=== PATIENT | female | born 1965 | race Caucasian/White ===

== ENCOUNTER → 2017-07-24 | Outpatient (CLI) | payer OTHER ==
[~2017-07-24] MED LIST: PEPCID AC 10MG10 MG PO; elderberry; juice plus PO
== END ==
LOC: MC.RAD 07:40
DX: Z12.31 Encounter for screening mammogram for malignant neoplasm of breast (principal)

== ENCOUNTER → 2018-08-30 | Outpatient (CLI) | payer BC | LOC: MC.RAD 14:54 | DX: Z12.31 Encounter for screening mammogram for malignant neoplasm of breast (principal) ==

== ENCOUNTER → 2019-09-16 | Outpatient (CLI) | payer BC | LOC: MC.RAD 16:30 | DX: Z12.31 Encounter for screening mammogram for malignant neoplasm of breast (principal) ==

== ENCOUNTER → 2020-08-17 | Outpatient (CLI) | payer BC | LOC: COL.RAD 14:22 | DX: M89.9 Disorder of bone, unspecified (principal); S42.202A Unspecified fracture of upper end of left humerus, initial encounter for closed fracture; Z98.890 Other specified postprocedural states ==

== ENCOUNTER → 2020-08-18 | Outpatient (CLI) | payer BC | LOC: COL.RAD 09:24 | DX: M89.9 Disorder of bone, unspecified (principal) | CPT/HCPCS: A9503 ==

== ENCOUNTER → 2020-08-30 | Outpatient (CLI) | payer BC | LOC: COL.RAD 10:11 | DX: C90.00 Multiple myeloma not having achieved remission (principal) ==

== ENCOUNTER 2020-09-13 16:23 | Inpatient (IN) | payer BC ==
[2020-09-13] VITALS (7 sets, daily range): BP systolic 95–111; BP diastolic 49–84; PULSE 80–94; TEMP 97.9–98.4
[~2020-09-13] VITALS: Ht 167.6 cm; Wt 65.9 kg
[2020-09-13 17:25] LABS: ALANINE AMINOTRANSFERASE 67 U/L (4-34); ALBUMIN 3.5 gm/dL (3.5-5.0); ALKALINE PHOSPHATASE 214 U/L (50-136); ANION GAP 5 mmol/L (7-16); AST,SGOT 50 U/L (15-37); BILIRUBIN,TOTAL 0.6 mg/dL (0.0-1.0); BLOOD UREA NITROGEN 11 mg/dL (7-17); CALCIUM 9.1 mg/dL (8.4-10.2); CARBON DIOXIDE 31 mmol/L (22-30); CHLORIDE 99 mmol/L (98-107); CREATININE, serum 0.79 (0.52-1.25); GLUCOSE 131 mg/dL (74-106); LIPASE 31 U/L (23-300); POTASSIUM 3.6 mmol/L (3.4-5.0); SODIUM 135 mmol/L (137-145); TOTAL PROTEIN 5.8 gm/dL (6.4-8.2)
[2020-09-13 17:34] LABS: MEAN CELL VOLUME 103 fl (80.0-100.0); MEAN CORPUSCULAR HGB CONC 32 g/dl (33.0-37.0); MEAN PLATELET VOLUME 8.8 fl (7.4-10.4); PLATELET COUNT 361 K/mm3 (130-400); RED BLOOD COUNT 2.04 M/mm3 (4.10-5.30); REDCELL DISTRIBUTION WIDTH-CV 12.8 % (11.5-14.5)
[2020-09-13 17:45] LABS: TROPONIN-I < 0.012 ng/mL (0.000-0.035)
[2020-09-13 17:47] LABS: HEMOGLOBIN 6.8 g/dl (12.5-16.0); MEAN CORPUSCULAR HEMOGLOBIN 33 pg (27.0-31.0)
[2020-09-13 18:06] LABS: COLLECTION METHOD CLEAN CATCH
[2020-09-13 18:39] LABS: PH 8 (5-8); SQUAMOUS EPITHELIAL None Seen /hpf; URINE APPEARANCE Clear; URINE BACTERIA None Seen /hpf; URINE BILIRUBIN Negative (NEGATIVE); URINE BLOOD Negative (NEGATIVE); URINE COLOR Straw; URINE GLUCOSE Negative (NEGATIVE); URINE KETONE Negative (NEGATIVE); URINE LEUKOCYTE ESTERASE Negative (NEGATIVE); URINE NITRATE Negative (NEGATIVE); URINE PROTEIN(semi-quant) Negative (NEGATIVE); URINE RBC None Seen /hpf; URINE UROBILINOGEN Negative (NEGATIVE)
[2020-09-13 19:23] LABS: BAND 6 % (0-10); EOSINOPHIL 1 % (0-4); LYMPHOCYTE 26 % (20.0-51.0); METAMYELOCYTE 1 % (0-0); NEUTROPHILS 53 % (42.0-75.2)
[2020-09-13 19:25] LABS: PLATELET ESTIMATE NORMAL (NORMAL)
[2020-09-13 19:26] LABS: OVALOCYTES 1+; POLYCHROMASIA 1+; TEAR DROP CELLS 1+
[2020-09-13 20:18] LABS: INR 1.3 (0.8-3.0)
[2020-09-13 20:21] LABS: PARTIAL THROMBOPLASTIN TIME 34.2 SECONDS (26.0-37.0)
[2020-09-14 02:31] VITALS: BP 108/58; PULSE 72; TEMP 97.8
[2020-09-14] MEDS ORDERED: ZYRTEC 10MG10 MG PO (02:44)
[2020-09-14] MEDS ORDERED: ONE-A-DAY ESSE1 EACH PO (02:45)
[2020-09-14] MEDS ORDERED: PROBIOTIC FORMU1 CAP PO (02:45)
[2020-09-14] MEDS ORDERED: SEN-O-TABS8.6 MG PO (02:46)
--- NOTE | 2020-09-14 02:56 | NUR ---
Arrived to medical floor. Assessment complete. Lungs clear. Heart sounds normal. Pulses present throughout. No edema noted. Bowels active x4. IV right forearm infusing without complications. Incision to left shoulder and left knee covered with dressing and CDI. Reported 6/10 left shoulder pain and headache. Given PRN ultram at this time. Orientated to medical floor. Used bedside commode x1 assist. Denies any questions at this time. Denies needs. Call light in reach. SCDs in place. Food menu reviewed with patient.
[2020-09-14 03:36] LABS: HEMATOCRIT 27.2 % (37.0-47.0)
--- NOTE | 2020-09-14 05:19 | NUR ---
Patient required x1 dose of ultram for pain control during night. Otherwise uneventful night. Resting in bed this AM. Call light in reach.
--- NOTE | 2020-09-14 07:39 | NUR ---
Report given to BOBBY Cherry
[2020-09-14 07:51] VITALS: BP 116/65; PULSE 81; TEMP 97.9
[2020-09-14 08:17] LABS: MEAN CELL VOLUME 104 fl (80.0-100.0); MEAN CORPUSCULAR HGB CONC 32 g/dl (33.0-37.0); MEAN PLATELET VOLUME 8.4 fl (7.4-10.4); PLATELET COUNT 310 K/mm3 (130-400); REDCELL DISTRIBUTION WIDTH-CV 14.3 % (11.5-14.5)
[2020-09-14 08:19] LABS: HEMOGLOBIN 9.3 g/dl (12.5-16.0); MEAN CORPUSCULAR HEMOGLOBIN 33 pg (27.0-31.0)
[2020-09-14 08:57] LABS: PATHOLOGY DIFF REVIEW OK
--- NOTE | 2020-09-14 09:47 | NUR ---
Initial visit; Patient thanked [employer] for looking in on her and offering spiritual care.
[2020-09-14 11:25] VITALS: BP 120/61; PULSE 80; TEMP 98.4
--- NOTE | 2020-09-14 14:47 | NUR ---
Pt assessment completed and charted. Pt A&O, independent in room, on room air, breathing is even and unlabored, LS cta, HRRR. Pt denies chest pain, dizziness. Pt stated she had some nausea, zofran administered per oct. Pt c/o of headache and pain to Lt arm, pt receiving tylenol and ultram per oct. Pt has RFA INT IV that flushes well, IVF dc'd. No edema noted. Pt denies other needs at this time, call light within reach. Pt took shower this morning independently and had personal walker delivered.
--- NOTE | 2020-09-14 15:27 | NUR ---
Spray Gunner met with patient to discuss discharge planning. 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 Patient one week post left humerus/left femur prophylactic stabilization. Patient sees Dr. Mc for primary care and obtains medications from [facility] with no difficulties. Patient also follows with Dr. Jean Baptiste, Oncologist. Patient normally does not use DME but has a platform walker, shower chair, and toilet riser for surgery recovery. Patient is independent with ADLS and plans to return home upon discharge. Patient reports she had [employer]PO[employer]-HC which designates her friend, Reina Guerra. Patient states her daughter, Rachel ([phone]) will provide transportation home upon discharge. PT/OT were ordered for patient and recommendation is for home. RAMON contacted BOBBY Watkins-CM at [facility] who will fax DPOA-HC documents to RAMON.
[2020-09-14 16:58] VITALS: BP 125/66; PULSE 77; TEMP 98.4
[2020-09-14 17:48] LABS: HEMATOCRIT 28.9 % (37.0-47.0); HEMOGLOBIN 9.4 g/dl (12.5-16.0)
--- NOTE | 2020-09-14 19:38 | NUR ---
Resting in bed. Assessment complete. Lungs clear. Heart sounds normal. Bowels active x4. Pulses present throughout. No edema noted. INT right forearm without complications. Incisions to left shoulder and left knee CDI. Reports pain in left shoulder 6/10. Given PRN tramadol. Denies other needs at this time. Call light in reach.
[2020-09-14 21:02] VITALS: BP 138/70; PULSE 77; TEMP 98.7
[2020-09-14 22:44] LABS: FOLATE (FOLIC ACID) 16.5 ng/mL (7.0-31.4)
[2020-09-15 01:00] VITALS: BP 142/72; PULSE 88; TEMP 97.9
--- NOTE | 2020-09-15 04:09 | NUR ---
Resting in bed. Denies needs. Call light in reach.
[2020-09-15 05:31] VITALS: BP 127/78; PULSE 92; TEMP 97.9
--- NOTE | 2020-09-15 06:14 | NUR ---
Patient required x1 dose of ultram and x1 dose of tylenol for pain control during night. Otherwise uneventful night. Resting in bed this AM. call light in reach.
--- NOTE | 2020-09-15 07:07 | NUR ---
Report given to BOBBY Cherry
[2020-09-15 07:29] LABS: MEAN CELL VOLUME 102 fl (80.0-100.0); MEAN CORPUSCULAR HGB CONC 33 g/dl (33.0-37.0); MEAN PLATELET VOLUME 8.7 fl (7.4-10.4); PLATELET COUNT 341 K/mm3 (130-400); RED BLOOD COUNT 2.91 M/mm3 (4.10-5.30); REDCELL DISTRIBUTION WIDTH-CV 14.4 % (11.5-14.5)
[2020-09-15 07:39] LABS: CALCIUM 9.3 mg/dL (8.4-10.2); CREATININE, serum 0.68 (0.52-1.25); POTASSIUM 3.5 mmol/L (3.4-5.0)
[2020-09-15 07:46] LABS: HEMATOCRIT 29.6 % (37.0-47.0); HEMOGLOBIN 9.8 g/dl (12.5-16.0); MEAN CORPUSCULAR HEMOGLOBIN 34 pg (27.0-31.0)
[2020-09-15 08:20] VITALS: BP 115/70; PULSE 80; TEMP 98.6
--- NOTE | 2020-09-15 09:26 | NUR ---
Pt assessment completed and charted, medications administered per mar, pt A&O, independent in room, on room air, breathing is even and unlabored, denies SOB, denies chest pain. Pt states she justs "feels off". Has difficulty describing her symptoms, states she feels kind of "woozy, dizzy". Per pt she is trying not to take ultram and only take tylenol. Denies need for any med at this time. Pt has RFA INT IV that flushes well. Lt arm and lt leg covered w/ dressing from s/p surgery 1 week ago. LS cta, HRRR, pulses strong bilaterally. Pt states Lt arm bothers her "a little bit" but her Lt leg is fine. No further needs at this time. Call light within reach.
[2020-09-15 09:31] LABS: BAND 8 % (0-10); LYMPHOCYTE 17 % (20.0-51.0); METAMYELOCYTE 1 % (0-0); NEUTROPHILS 67 % (42.0-75.2); PLATELET ESTIMATE NORMAL (NORMAL)
[2020-09-15 09:32] LABS: ANISOCYTOSIS 1+
[2020-09-15] MEDS ORDERED: XARELTO10 MG PO (09:32)
[2020-09-15] MEDS ORDERED: ULTRAM 50MG TAB50 MG PO (09:33)
[2020-09-15] MEDS ORDERED: ZOFRAN ODT4 MG PO (09:34)
--- NOTE | 2020-09-15 11:10 | NUR ---
INT RFA dc'd w/ cath tip intact, no issues. Pt showering prior to discharge. Discharge instructions discussed and reviewed w/ pt who verbalized understanding, all questions answered, no further needs at this time. Awaiting pt ride to arrive.
--- NOTE | 2020-09-15 11:41 | NUR ---
Fish Culturist attended clinical rounds with the team and patient to discharge home today. No needs identified at this time.
--- NOTE | 2020-09-15 11:52 | NUR ---
Pt escorted out via WC w/ all of belongings. Pt daughter arrived to take pt home in private car.
== END 2020-09-15 11:52 | disposition home or self-care (01) | DRG 812 ==
LOC: COL.ER 16:23 → MEDICAL 20:18
PROVIDERS: Emergency Medicine; Student in an Organized Health Care Education/Training Program; ADMIT Student in an Organized Health Care Education/Training Program
DX: D64.9 Anemia, unspecified (principal); C90.00 Multiple myeloma not having achieved remission; K21.9 Gastro-esophageal reflux disease without esophagitis; Z20.828 Contact with and (suspected) exposure to other viral communicable diseases; D63.8 Anemia in other chronic diseases classified elsewhere
CPT/HCPCS: 99223-AI; 99232-AI; 99239; J2405; J7030; J7120; P9016

== ENCOUNTER 2020-10-08 14:58 | Emergency (ER) | payer BC ==
[~2020-10-08] VITALS: Ht 167.6 cm; Wt 65.9 kg
[~2020-10-08 14:58] MED LIST changes: +ONE-A-DAY ESSE1 EACH PO; +PROBIOTIC FORMU1 CAP PO; +SEN-O-TABS8.6 MG PO; +ULTRAM 50MG TAB50 MG PO; +XARELTO10 MG PO; +ZOFRAN ODT4 MG PO; +ZYRTEC 10MG10 MG PO
[2020-10-08] MEDS ORDERED: PRILOSEC10 MG PO (15:33)
[2020-10-08 16:06] LABS: HEMOGLOBIN 11.3 g/dl (12.5-16.0); MEAN CELL VOLUME 101 fl (80.0-100.0); MEAN CORPUSCULAR HEMOGLOBIN 34 pg (27.0-31.0); MEAN CORPUSCULAR HGB CONC 33 g/dl (33.0-37.0); MEAN PLATELET VOLUME 10.9 fl (7.4-10.4); PLATELET COUNT 98 K/mm3 (130-400); RED BLOOD COUNT 3.36 M/mm3 (4.10-5.30); REDCELL DISTRIBUTION WIDTH-CV 13.5 % (11.5-14.5)
[2020-10-08 16:08] LABS: HEMATOCRIT 33.9 % (37.0-47.0)
[2020-10-08 16:18] LABS: ALANINE AMINOTRANSFERASE 91 U/L (4-34); ALBUMIN 3.7 gm/dL (3.5-5.0); ALKALINE PHOSPHATASE 172 U/L (50-136); ANION GAP 7 mmol/L (7-16); AST,SGOT 116 U/L (15-37); BILIRUBIN,TOTAL 0.3 mg/dL (0.0-1.0); BLOOD UREA NITROGEN 18 mg/dL (7-17); CALCIUM 9.3 mg/dL (8.4-10.2); CARBON DIOXIDE 28 mmol/L (22-30); CHLORIDE 99 mmol/L (98-107); CREATININE, serum 0.74 (0.52-1.25); GLUCOSE 145 mg/dL (74-106); POTASSIUM 3.4 mmol/L (3.4-5.0); SODIUM 134 mmol/L (137-145)
[2020-10-08 16:20] LABS: COLLECTION METHOD CLEAN CATCH
[2020-10-08 16:27] LABS: PH 5 (5-8); SQUAMOUS EPITHELIAL 0-2 /hpf; URINE APPEARANCE Clear; URINE BACTERIA None Seen /hpf; URINE BILIRUBIN Negative (NEGATIVE); URINE BLOOD Negative (NEGATIVE); URINE COLOR Yellow; URINE GLUCOSE Negative (NEGATIVE); URINE KETONE Negative (NEGATIVE); URINE LEUKOCYTE ESTERASE Negative (NEGATIVE); URINE NITRATE Negative (NEGATIVE); URINE PROTEIN(semi-quant) Negative (NEGATIVE); URINE RBC 0-2 /hpf; URINE UROBILINOGEN Negative (NEGATIVE)
[2020-10-08 16:31] LABS: TROPONIN-I < 0.012 ng/mL (0.000-0.035)
[2020-10-08 16:49] LABS: BAND 15 % (0-10); EOSINOPHIL 2 % (0-4); LYMPHOCYTE 10 % (20.0-51.0); NEUTROPHILS 67 % (42.0-75.2)
[2020-10-08 16:50] LABS: PLATELET ESTIMATE DECREASED (NORMAL)
[2020-10-08 17:34] VITALS: TEMP 100
[2020-10-08] MEDS ORDERED: LEVAQUIN 750MG750 M1 PO (19:03)
[2020-10-08 20:03] VITALS: BP 124/78; PULSE 93
== END 2020-10-08 20:03 | disposition home or self-care (01) ==
LOC: COL.ER 14:58
PROVIDERS: Emergency Medicine
DX: R50.9 Fever, unspecified (principal); D84.9 Immunodeficiency, unspecified; K21.9 Gastro-esophageal reflux disease without esophagitis; Z20.822 Contact with and (suspected) exposure to COVID-19; Z85.79 Personal history of other malignant neoplasms of lymphoid, hematopoietic and related tissues; Z88.1 Allergy status to other antibiotic agents; Z79.01 Long term (current) use of anticoagulants
CPT/HCPCS: J0692; J7120; Q9967

== ENCOUNTER → 2020-10-18 | Outpatient (CLI) | payer BC ==
[~2020-10-18] MED LIST changes: +LEVAQUIN 750MG750 M1 PO; +PRILOSEC10 MG PO
== END ==
LOC: MC.RAD
DX: Z12.31 Encounter for screening mammogram for malignant neoplasm of breast (principal); Z98.890 Other specified postprocedural states

== ENCOUNTER 2020-10-29 01:41 | Emergency (ER) | payer BC ==
[~2020-10-29] VITALS: Ht 167.6 cm; Wt 63.6 kg
[2020-10-29 02:12] LABS: HEMOGLOBIN 11.9 g/dl (12.5-16.0); MEAN CELL VOLUME 99 fl (80.0-100.0); MEAN CORPUSCULAR HEMOGLOBIN 33 pg (27.0-31.0); MEAN CORPUSCULAR HGB CONC 33 g/dl (33.0-37.0); MEAN PLATELET VOLUME 11.3 fl (7.4-10.4); PLATELET COUNT 101 K/mm3 (130-400); RED BLOOD COUNT 3.62 M/mm3 (4.10-5.30); REDCELL DISTRIBUTION WIDTH-CV 13.2 % (11.5-14.5)
[2020-10-29 02:30] LABS: ALBUMIN 3.9 gm/dL (3.5-5.0); BILIRUBIN,TOTAL 0.3 mg/dL (0.0-1.0); C-REACTIVE PROTEIN 1.1 mg/dL (0.0-0.9); CALCIUM 9.6 mg/dL (8.4-10.2); CREATININE, serum 0.68 (0.52-1.25); POTASSIUM 3.6 mmol/L (3.4-5.0); TOTAL PROTEIN 6.3 gm/dL (6.4-8.2)
[2020-10-29 02:32] LABS: BAND 12 % (0-10); LYMPHOCYTE 3 % (20.0-51.0); METAMYELOCYTE 1 % (0-0); MYELOCYTE 1 % (0-0); NEUTROPHILS 79 % (42.0-75.2); PLATELET ESTIMATE DECREASED (NORMAL)
[2020-10-29 03:09] LABS: COLLECTION METHOD CLEAN CATCH
[2020-10-29 03:15] LABS: MUCOUS Present /lpf; PH 5 (5-8); SQUAMOUS EPITHELIAL 0-2 /hpf; URINE APPEARANCE Clear; URINE BACTERIA Rare /hpf; URINE BILIRUBIN Negative (NEGATIVE); URINE BLOOD Negative (NEGATIVE); URINE COLOR Yellow; URINE GLUCOSE Negative (NEGATIVE); URINE KETONE Negative (NEGATIVE); URINE LEUKOCYTE ESTERASE Negative (NEGATIVE); URINE NITRATE Negative (NEGATIVE); URINE PROTEIN(semi-quant) Negative (NEGATIVE); URINE RBC 0-2 /hpf; URINE UROBILINOGEN Negative (NEGATIVE)
[2020-10-29 04:21] VITALS: BP 126/75; PULSE 84; TEMP 99.5
== END 2020-10-29 04:21 | disposition home or self-care (01) ==
LOC: COL.ER 01:41
PROVIDERS: Emergency Medicine
DX: R50.9 Fever, unspecified (principal); C90.00 Multiple myeloma not having achieved remission; K21.9 Gastro-esophageal reflux disease without esophagitis; Z20.822 Contact with and (suspected) exposure to COVID-19
CPT/HCPCS: J0692; J7030

== ENCOUNTER → 2021-10-19 | Outpatient (CLI) | payer BC | LOC: MC.RAD 15:00 | DX: Z12.31 Encounter for screening mammogram for malignant neoplasm of breast (principal) ==

== ENCOUNTER 2021-12-02 20:05 | Emergency (ER) | payer BC ==
[~2021-12-02] VITALS: Ht 167.6 cm; Wt 65.9 kg
[2021-12-02 20:14] VITALS: TEMP 98.2
[2021-12-02 21:12] LABS: BASO # 0.1 K/mm3 (0.0-0.2); BASO % 1.1 % (0.0-2.0); EOS # 0.3 K/mm3 (0.0-0.7); EOS % 6.7 % (0.0-4.0); GRAN # 2.7 K/mm3 (1.4-6.5); GRAN % 55.8 % (42.2-75.2); HEMATOCRIT 41.3 % (37.0-47.0); HEMOGLOBIN 14.4 g/dl (12.5-16.0); LYMPH % 21.7 % (20.0-51.0); MEAN CELL VOLUME 97 fl (80.0-100.0); MEAN CORPUSCULAR HEMOGLOBIN 34 pg (27-31); MEAN CORPUSCULAR HGB CONC 35 g/dl (33.0-37.0); MONO # 0.7 K/mm3 (0.1-0.6); MONO % 14.1 % (1.7-9.3); PLATELET COUNT 170 K/mm3 (130-400); RED BLOOD COUNT 4.27 M/mm3 (4.10-5.30); REDCELL DISTRIBUTION WIDTH-CV 13.4 % (11.5-14.5)
[2021-12-02 21:23] LABS: ALANINE AMINOTRANSFERASE 26 U/L (0-55); ALBUMIN 3.8 gm/dL (3.5-5.0); ALKALINE PHOSPHATASE 70 U/L (40-150); ANION GAP 12 mmol/L (7-16); AST,SGOT 21 U/L (5-34); BILIRUBIN,TOTAL 0.7 mg/dL (0.2-1.2); BLOOD UREA NITROGEN 15 mg/dL (10-20); CALCIUM 9.4 mg/dL (8.4-10.2); CARBON DIOXIDE 25 mmol/L (22-29); CHLORIDE 102 mmol/L (98-107); CREATININE, serum 0.96 mg/dL (0.57-1.11); GLUCOSE 146 mg/dL (70-99); POTASSIUM 3.5 mmol/L (3.5-4.5); SODIUM 139 mmol/L (136-145); TOTAL PROTEIN 6.4 gm/dL (6.2-8.1)
[2021-12-02] MEDS ORDERED: REVLIMID10 MG (21:29)
[2021-12-02 21:32] LABS: TROPONIN-I < 0.010 ng/mL (0.00-0.033)
[2021-12-02 23:01] VITALS: BP 111/68; PULSE 75
== END 2021-12-02 23:18 | disposition home or self-care (01) ==
LOC: COL.ER 20:05
PROVIDERS: Physician Assistant
DX: I26.99 Other pulmonary embolism without acute cor pulmonale (principal); Z86.718 Personal history of other venous thrombosis and embolism; Z79.01 Long term (current) use of anticoagulants
CPT/HCPCS: Q9967

== ENCOUNTER → 2023-12-21 | Outpatient (CLI) | payer BC ==
[~2023-12-21] MED LIST changes: +K-DUR20 MEQ PO; +REVLIMID10 MG
== END ==
LOC: MC.RAD 07:04
DX: Z12.31 Encounter for screening mammogram for malignant neoplasm of breast (principal); N63.25 Unspecified lump in the left breast, overlapping quadrants